=== PATIENT | female | born 1990 | race Caucasian/White ===

== ENCOUNTER 2018-01-09 10:29 | Emergency (ER) | payer SELFPAY | END 2018-01-09 11:20 | disposition home or self-care (01) | LOC: NAV ERS 10:29 | DX: J06.9 Acute upper respiratory infection, unspecified (principal); F17.210 Nicotine dependence, cigarettes, uncomplicated; J45.909 Unspecified asthma, uncomplicated | CPT/HCPCS: 87081; 87430; 99283 ==

== ENCOUNTER 2018-01-09 12:02 | Emergency (ER) | payer SELFPAY ==
[2018-01-09] MEDS ORDERED: PROVENTIL INHALER 6.7 G (200 INHALATIONS) ONE (12:22)
[2018-01-09] MEDS ORDERED: methylPREDNISolone Acetate 40 mg/ml Vial ONE (12:23)
[2018-01-09] MEDS ORDERED: Water For Inject, Bacteriostat 30 ML ONE (12:23)
[2018-01-09] MEDS ORDERED: Lorazepam 1 MG TAB ONE (12:30)
== END 2018-01-09 12:33 | disposition home or self-care (01) ==
LOC: NAV ERS 12:02
DX: F41.1 Generalized anxiety disorder (principal); J45.909 Unspecified asthma, uncomplicated; F17.210 Nicotine dependence, cigarettes, uncomplicated
CPT/HCPCS: J1030